=== PATIENT | male | born 1980 ===

== ENCOUNTER 2016-11-19 16:55 | Inpatient (IN) | payer MEDICAID, OTHER ==
[2016-11-19 16:55] VITALS: BMI 21.5
[2016-11-19 17:56] LABS: BASO % 0.9 % (0.0-2.0); EOS % 1.3 % (0.0-4.0); HEMATOCRIT 36.6 % (35.0-51.0); LYMPH # 1.5 K/uL (1.0-4.3); LYMPH % 39.4 % (20.0-40.0); MEAN CELL VOLUME 96.1 fL (80.0-94.0); MEAN CORPUSCULAR HEMOGLOBIN 32.3 pg (27.0-31.0); MEAN CORPUSCULAR HGB CONC 33.7 g/dL (33.0-37.0); MEAN PLATELET VOLUME 8.4 fL (7.2-11.7); MONO # 0.5 K/uL (0.0-0.8); MONO % 12.8 % (0.0-10.0); RED CELL DISTRIBUTION WIDTH 13.4 % (11.5-14.5); WHITE BLOOD COUNT 3.8 K/uL (4.8-10.8)
[2016-11-19 18:00] LABS: CHLORIDE 97 mmol/L (98-107); POTASSIUM 4.4 mmol/L (3.6-5.2); SODIUM 138 mmol/L (132-148)
[2016-11-19 18:01] LABS: RBC URINE 1 /hpf (0-3); URINE BILIRUBIN NEGATIVE (NEGATIVE); URINE BLOOD NEGATIVE (NEGATIVE); URINE COLOR Yellow (YELLOW); URINE GLUCOSE (UA) NORMAL (Normal); URINE KETONE NEGATIVE (NEGATIVE); URINE LEUKOCYTE ESTERASE NEG Leu/uL (Negative); URINE PROTEIN NEGATIVE (NEGATIVE); URINE UROBILINOGEN NORMAL mg/dL (0.2-1.0); WBC URINE < 1 /hpf (0-5)
[2016-11-19 18:02] LABS: BILIRUBIN,TOTAL 0.5 mg/dL (0.2-1.3); GFR AFRICAN-AMERICAN > 60
[2016-11-19 18:03] LABS: ALB/GLOB RATIO 1.2 (1.0-2.1); ALKALINE PHOSPHATASE 41 U/L (38-126); ALT/SGPT 59 U/L (21-72); AST/SGOT 58 U/L (17-59); BLOOD UREA NITROGEN 9 mg/dL (9-20); CALCIUM 8.4 mg/dl (8.6-10.4); CARBON DIOXIDE 31 mmol/L (22-30); GLUCOSE,RANDOM 113 mg/dL (75-110); TOTAL PROTEIN 7.6 g/dL (6.3-8.3)
[2016-11-19 18:04] LABS: ALCOHOL SERUM < 10 mg/dl (0-10)
--- NOTE | 2016-11-19 18:34 | C.PDOC ---
History Of Present Illness <MaryaRupal - Last Filed: 11/19/16 18:47> <Cruz Olmstead - Last Filed: 11/19/16 19:43> The patient, a 36 y/o male, presents to the emergency department for psychiatric evaluation. Patient states he has been feeling depressed after his father around 3 weeks ago. Patient admits to IV Heroin use. He denies recent seizure activity, stating he has been compliant with his medication. Patient denies suicidal/homicidal ideation and has no physical complaints at this time. (MaryaRupal) History Per: Patient History/Exam Limitations: no limitations Onset/Duration Of Symptoms: Other (around 3 weeks ) Current Symptoms Are (Timing): Still Present Suicide/Self Injury Attempted (Context): None Modifying Factor(s): Other (+heroin) Associated Symptoms: Depression. denies: Suicidal Thoughts, Suicidal Plan Involuntary Hold By: None Recent travel outside of the [place]: No Additional History Per: Patient <MaryaRupal - Last Filed: 11/19/16 18:47> <Cruz Olmstead - Last Filed: 11/19/16 19:43> Time Seen by Provider: 11/19/16 17:14 Chief Complaint (Nursing): Psychiatric Evaluation Past Medical History Reviewed: Historical Data, Nursing Documentation, Vital Signs - Medical History PMH: Anxiety, Depression, Pancreatitis, Seizures, Chronic Pain Denies: Diabetes, Hepatitis, HIV, HTN, Chronic Kidney Disease, Sexually Transmitted Disease Surgical History: No Surg Hx Family History: States: Unknown Family Hx - Social History Hx Tobacco Use: Yes Hx Alcohol Use: Yes Hx Substance Use: Yes - Immunization History Hx Tetanus Toxoid Vaccination: No Hx Influenza Vaccination: Yes Hx Pneumococcal Vaccination: Yes <MikeRupal kaplan - Last Filed: 11/19/16 18:47> Review Of Systems Except As Marked, All Systems Reviewed And Found Negative. Psych: Positive for: Depression, Other (+IV heroin use ). Negative for: Suicidal ideation <MikeRupal kaplan - Last Filed: 11/19/16 18:47> Physical Exam - Physical Exam Appears: Non-toxic, No Acute Distress Skin: Normal Color, Warm, Dry, Other (+track chaudhry to left upper extremity ) Head: Atraumatic, Normacephalic Eye(s): bilateral: Normal Inspection Oral Mucosa: Moist Neck: Supple Chest: Symmetrical, No Deformity, No Tenderness Cardiovascular: Rhythm Regular, No Murmur Respiratory: Normal Breath Sounds, No Rales, No Rhonchi, No Wheezing Back: Normal Inspection, No Vertebral Tenderness, No Paraspinal Tenderness Extremity: Normal ROM, Capillary Refill (less than 2 seconds ) Neurological/Psych: Oriented x3, Normal Speech, Normal Cognition Gait: Steady <Rupal Malhotra - Last Filed: 11/19/16 18:47> ED Course And Treatment - Laboratory Results Result Diagrams: 11/19/16 17:45 11/19/16 17:45 O2 Sat by Pulse Oximetry: 98 (on RA) Pulse Ox Interpretation: Normal Progress Note: labs ordered and reviewed. <Rupal Malhotra - Last Filed: 11/19/16 18:47> - Laboratory Results Result Diagrams: 11/19/16 17:45 11/19/16 17:45 <Cruz Olmstead - Last Filed: 11/19/16 19:43> Disposition - Disposition Disposition Time: 18:47 <Rupal Malhotra - Last Filed: 11/19/16 18:47> Discussed With : Caterina Neumann Doctor Will See Patient In The: Hospital Counseled Patient/Family Regarding: Diagnosis - Disposition Disposition Time: 19:43 <Cruz Olmstead - Last Filed: 11/19/16 19:43> - Disposition Disposition: HOSPITALIZED Condition: STABLE - Clinical Impression Clinical Impression: Depression, Opioid abuse - PA / [employer] MANAGER / Resident Statement MD/DO has reviewed & agrees with the documentation as recorded. - Scribe Statement The provider has reviewed the documentation as recorded by the Scribe (Kavya Fay) <Rupal Malhotra - Last Filed: 11/19/16 18:47> <Cruz Olmstead - Last Filed: 11/19/16 19:43> - Scribe Statement All medical record entries made by the Scribe were at my direction and personally dictated by me. I have reviewed the chart and agree that the record accurately reflects my personal performance of the history, physical exam, medical decision making, and the department course for this patient. I have also personally directed, reviewed, and agree with the discharge instructions and disposition. (Rupal Malhotra) Physician Patient Turnover Patient Signed Over To: Cruz Olmstead Handoff Comments: pending psych evaluation <Rupal Malhotra - Last Filed: 11/19/16 18:47>
[2016-11-19] MEDS ORDERED: Aluminum Hydroxide/Magnesium Hydroxide Susp (30 mL) PO PRN (21:47)
[2016-11-20] MEDS ORDERED: Patient's Own Medication - Tablet/Capusle PO SCH (10:00)
[2016-11-20] MEDS: Divalproex 500 mg ER Tab PO SCH ×2 (11:23→17:06)
[2016-11-20] MEDS ORDERED: Buprenorphine Hydrochloride 2 mg SL ONE ×2 (13:45→14:00)
--- NOTE | 2016-11-20 14:31 | PCM.PSYCH ---
Initial Psychiatric Evaluation - Initial Psychiatric Evaluation Type of Admission: Voluntary Legal Status: Capacity Chief Complaint (in patient's own words): "I needed help" History of Present Illness and Precipitating Events: The pt is seen, chart reviewed, case discussed. He is known to the insurance underwriter from previous admission. This is a 36 yo LM, , has an 8 yo son. On disability due to epilepsy and lives alone. He uses "10-11" bags IV x1 month and started when he was 15 yo. Denies all other drugs and alcohol but cigarette 10/d and MJ is positive in UDS but again he denies using it. He has been to 5 detoxes and as many rehabs in the past. Used methadone in [place] and his dose was 180 mg, 4 years ago. He feels depressed and has had vague SI even recently. However, he denies it now and contracts for safety. No other psych sxs. Past psych hx: four admissions and two germania attempts. Last time for both was in 2012. Method was OD by pills Not on meds now. Family psych hx: Mo had depression and father and uncles had heroin use. Medical hx: Epilepsy. Current Medications: Active Medications Generic Name Dose Route Start Last Admin Trade Name Freq PRN Reason Stop Dose Admin Al Hydrox/Mg Hydrox/Simethicone 30 ml 11/19/16 21:47 Maalox 30 Ml PO TID PRN Indigestion / Heartburn Clonidine HCl 0.1 mg 11/19/16 21:47 Catapres PO Q8 PRN COWS Score More or Equal to 5 Divalproex Sodium 500 mg 11/20/16 10:00 11/20/16 11:23 Depakote Er PO 500 mg BID ROXANNE Administration Escitalopram Oxalate 5 mg 11/20/16 11:00 11/20/16 12:16 Lexapro PO 5 mg DAILY ROXANNE Administration Home Med 1 tab 11/20/16 10:00 11/20/16 11:23 Patient's Own Medication PO 1 tab DAILY ROXANNE Administration Hydroxyzine HCl 50 mg 11/19/16 21:48 Atarax PO Q6H PRN Anxiety Ibuprofen 600 mg 11/19/16 21:50 Motrin Tab PO Q6H PRN Pain, moderate (4-7) Loperamide HCl 2 mg 11/19/16 21:47 Imodium PO Q8 PRN Diarrhea Ondansetron HCl 4 mg 11/19/16 21:47 Zofran Tab PO Q8 PRN Nausea/Vomiting Trazodone HCl 100 mg 11/19/16 21:48 Desyrel PO HS PRN Insomnia Past Psychiatric History - Past Psychiatric History Previous Treatment History: Inpatient Pertinent Medical Hx (Current Medical&Sleep Prob, Allergies): Allergies Allergy/AdvReac Type Severity Reaction Status Date / Time No Known Allergies Allergy Verified 11/19/16 17:35 Divalproex [Depakote ER] 500 mg PO BID 02/11/15 Eslicarbazepine Acetate [Aptiom] 1 tab PO DAILY 11/19/16 Zolpidem [Ambien] 1 tab PO HS 11/19/16 hydrALAZINE [Apresoline] 1 tab PO DAILY 11/19/16 Review of Systems - Neurological Neurological: UNREMARKABLE - Psychiatric Psychiatric: Abnormal Sleep Pattern, Anhedonia, Anxiety, Depression, Difficulty Concentrating. absent: Hallucinations, Homicidal Ideation, Hopelessness, Paranoia, Suicidal Ideation Mental Status Examination - Personal Presentation Personal Presentation: Looks older than stated age - Affect Affect: Blunted - Motor Activity Motor Activity: Calm - Reliability in Providing Information Reliability in Providing Information: Fair - Speech Speech: Organized - Mood Mood: Depressed, Anxious - Formal Thought Process Formal Thought Process: No Impairment - Cognitive Functions Orientation: Person, Place, Situation, Time Sensorium: Alert Attention/Concentration: Attentive Abstract Thinking: [place] Estimate of Intelligence: Average Judgement: Intact, as evidence by: Insight regarding need for hospitalization Memory: Recent intact, as evidence by: Ability to recall events of the day, Remote intact, as evidenced by: Abilit to recall sig. life events - Risk Risk: Withdrawal, Diminished functioning - Strength & Assets Inventory Strength & Assets Inventory: Cooperative - Limitations Limitations: Living alone DSM 5 DX - DSM 5 DSM 5 Diagnosis: Opioid withdrawal Opioid use d/o - severe Tobacco use d/o - severe Major depressive d/o - recurrent, severe, without psychosis - Recommended/Plan of Treatment Treatment Recommendations and Plan of Treatment: Opioids: Subutex detox As needed meds Support and psychoed Attend groups and activities NH and CBT Depression: Lexapro CBT and support Epilepsy: Continue meds 34 min Projected ELOS: 4-5 days Prognosis: good w treatment - Smoking Cessation Smoking Cessation Initiated: Yes
--- NOTE | 2016-11-20 20:47 | PCM.RRTMUL ---
MANAGER NIGHT Nurses Assessment - Situation MANAGER NIGHT Responder Arrival Time:: 20:25 MANAGER NIGHT Reason for Call: Change in Mental Status (epileptic seizure) MANAGER NIGHT Called By: RN - IV IV Inserted during MANAGER NIGHT?: No IV Fluids Initiated During MANAGER NIGHT?: no - Respiratory Oxygen Delivery Method:: Nasal Cannula (2L) Received Nebulizer Treatments:: No Was the Patient Ventilated with Bag/Mask 100% O2?: No Secretions Suctioned?: No Was the Patient Intubated?: No Was the Patient Placed on a Ventilator?: No - Diagnostic Test Ordered EKG:: Yes CT Scan:: Yes (Head CT w/o contrast) CPR started during MANAGER NIGHT?: No - Vital Signs Blood Pressure:: 108/66 (lying down left lateral decubitus) Pulse Rate:: 106 Respiratory Rate:: 18 Temperature:: 97.9 F - Time MANAGER NIGHT Ended Time MANAGER NIGHT Ended:: 08:38 - Recommendations 5) MANAGER NIGHT Level of Care Recommendations: Transfer to Telemetry 6) Notifications: Attending Physician (Dr. Neumann), Consultations (Dr. Pelaez neurology) I.Reason for MANAGER NIGHT - A) Acute Change in Patient: (Select all that apply): Acute change in mental status (witnessed seizure) - A) Initial Vital Signs: Blood Pressure: 123/64 Pulse Rate: 85 Respiratory Rate: 18 Temperature: 97.9 F O2 Sat by Pulse Oximetry: 99 - B) Neurological Status (Select all that apply): Alert, Responsive, Disoriented. absent: Oriented (x 2 to self and year - not place), Confused, Lethargic, Aggressive, Weakness - C) Respiratory Oxygen Delivery Method: Nasal Cannula @L/min (2L/min) - Constitutional Appears: In Acute Distress (seizing) - Head Head Exam: ATRAUMATIC, NORMAL INSPECTION, NORMOCEPHALIC - Eyes Eye Exam: Normal appearance. absent: Conjunctival injection, Scleral icterus - Respiratory Exam Respiratory Exam: Clear to Ausculation Bilateral, NORMAL BREATHING PATTERN. absent: Accessory Muscle Use, Rales, Rhonchi, Wheezes, Respiratory Distress - Cardiovascular Exam Cardiovascular Exam: REGULAR RHYTHM, RRR, +S1, +S2 - GI/Abdominal Exam GI & Abdominal Exam: Soft, Normal Bowel Sounds. absent: Tenderness - Neurological Exam Neurological Exam: Alert, Awake. absent: Oriented x3 Additional exam: post ictal - Extremities Exam Extremities Exam: Normal Capillary Refill, Normal Inspection. absent: Pedal Edema, Tenderness Plan - A. End of MANAGER NIGHT Vital Signs: Blood Pressure: 108/66 Pulse Rate: 106 Respiratory Rate: 18 Temperature: 97.9 F O2 Sat by Pulse Oximetry: 99 - B. Assessment of Findings&Treatment Plan Epileptic Seizure Patient was given 1mg ativan IVP STAT Patient ordered 1mg q4 IVP prn seizure activity CT head w/o contrast was ordered to rule out any bleed Patient had stat EKG ordered Transfer to [facility] for monitoring Dr. Pelaez Neurology consulted Dr. Neumann primary physician aware
--- NOTE | 2016-11-20 21:14 | CP.PCM.HP ---
<Radha Vidal - Last Filed: 11/20/16 21:52> History of Present Illness - History of Present Illness History of Present Illness: CC: seizure HPI: 36 year old male with PMHx of Epilepsy, depression with h/o of SI and attempt, IVDA was transferred to [facility] after a [employer] was called on detox unit for seizure activity. Patient was admitted to detox on 11/20/16 because he wanted to detox from heroin and was depressed. Patient's last heroin use was on Saturday when he injected 7-8 bags and usually injects in his left arm. Patient reported he usually uses 10 to 11 bags of heroin. He gets money from disability. Patient was also depressed but denied any suicidal or homicidal ideations on this visit and denied any auditory or visual hallucinations. Patient has a history of congenital epilepsy for which he takes Depakote 500mg po bid and Optium 600mg daily. He reports he had his last seizure the week before admission when he was home alone and had an unwitnessed seizure. Patient reports no predromal symptoms before his seizure. He states he is complaint with his medications. On ROS patient admitted to headaches, dizziness, lightheadedness and denied all other acute symptoms. Patient denied any recent travel, sickness, sick contacts. PMD: Dr. Nieves PMHx: Epilepsy, depression with h/o of SI and attempt, IVDA. ALL: NKDA Social Hx: Smoking Status: Light Smoker < 10 Cigarettes Daily, Alcohol: None, Drugs: Opiates (IVDA of Heroin). SurgHx: none Family Hx: mother ad breast ca and DM; father from overdose Present on Admission - Present on Admission Any Indicators Present on Admission: No Review of Systems - Constitutional Constitutional: As Per HPI, Headache. absent: Chills, Weight Gain, Weight Loss - EENT Eyes: As Per HPI Ears: As Per HPI, Dizziness Nose/Mouth/Throat: As Per HPI. absent: Dysphagia, Sore Throat - Cardiovascular Cardiovascular: As Per HPI. absent: Chest Pain, Dyspnea, Dyspnea on Exertion, Edema, Leg Edema, Palpitations - Respiratory Respiratory: As Per HPI. absent: Cough, Dyspnea, Wheezing, Chest Congestion - Gastrointestinal Gastrointestinal: As Per HPI. absent: Abdominal Pain, Constipation, Diarrhea, Dysphagia, Nausea, Vomiting - Genitourinary Genitourinary: As Per HPI. absent: Dysuria, Hematuria, Pyuria, Nocturia - Musculoskeletal Musculoskeletal: As Per HPI. absent: Back Pain, Numbness, Tingling - Integumentary Integumentary: As Per HPI. absent: Rash - Neurological Neurological: As Per HPI, Dizziness, Headaches. absent: Numbness, Tingling, Weakness - Psychiatric Psychiatric: As Per HPI, Depression. absent: Anxiety, Auditory Hallucinations, Hallucinations, Homicidal Ideation, Suicidal Ideation, Visual Hallucinations, Tactile Hallucinations - Endocrine Endocrine: As Per HPI. absent: Palpitations, Polydipsia, Polyphagia, Polyuria - Hematologic/Lymphatic Hematologic: absent: Easy Bleeding, Easy Bruising, Lymphadenopathy Past Patient History - Infectious Disease Hx of Infectious Diseases: None - Tetanus Immunizations Tetanus Immunization: Unknown - Past Medical History & Family History Past Medical History?: Yes - Past Social History Smoking Status: Heavy Smoker > 10 Cigarettes Daily - CARDIAC Hx Hypertension: No - PULMONARY Hx Tuberculosis: No - NEUROLOGICAL Hx Seizures: Yes - HEENT Hx HEENT Problems: No - RENAL Hx Chronic Kidney Disease: No - ENDOCRINE/METABOLIC Hx Endocrine Disorders: No - HEMATOLOGICAL/ONCOLOGICAL Hx Human Immunodeficiency Virus (HIV): No - INTEGUMENTARY Hx Dermatological Problems: No - MUSCULOSKELETAL/RHEUMATOLOGICAL Hx Musculoskeletal Disorders: No Hx Falls: Yes - GASTROINTESTINAL Hx Pancreatitis: Yes - GENITOURINARY/GYNECOLOGICAL Hx Sexually Transmitted Disorders: No - PSYCHIATRIC Hx Anxiety: Yes Hx Depression: Yes Hx Substance Use: Yes - SURGICAL HISTORY Hx Surgeries: Yes - ANESTHESIA Hx Anesthesia: Yes Hx Anesthesia Reactions: No Meds Allergies/Adverse Reactions: Allergies Allergy/AdvReac Type Severity Reaction Status Date / Time No Known Allergies Allergy Verified 11/19/16 17:35 Physical Exam - Constitutional Appears: Non-toxic, No Acute Distress - Head Exam Head Exam: ATRAUMATIC, NORMAL INSPECTION, NORMOCEPHALIC - Eye Exam Eye Exam: EOMI, Normal appearance, PERRL. absent: Conjunctival injection, Scleral icterus Pupil Exam: NORMAL ACCOMODATION, PERRL - ENT Exam ENT Exam: Mucous Membranes Moist - Neck Exam Neck exam: Positive for: Full Rom, Normal Inspection. Negative for: Lymphadenopathy, Tenderness - Respiratory Exam Respiratory Exam: Clear to Auscultation Bilateral, NORMAL BREATHING PATTERN. absent: Accessory Muscle Use, Rales, Rhonchi, Wheezes, Respiratory Distress - Cardiovascular Exam Cardiovascular Exam: REGULAR RHYTHM, RRR, +S1, +S2 - GI/Abdominal Exam GI & Abdominal Exam: Normal Bowel Sounds, Soft. absent: Firm, Guarding, Rigid, Tenderness - Extremities Exam Extremities exam: Positive for: normal capillary refill, pedal pulses present. Negative for: pedal edema, tenderness Additional comments: track chaudhry noted on LUE - Back Exam Back exam: NORMAL INSPECTION. absent: rash noted, tenderness - Neurological Exam Neurological exam: Alert, CN II-XII Intact, Oriented x3 - Psychiatric Exam Psychiatric exam: Depressed, Normal Affect - Skin Skin Exam: Dry, Intact, Normal Color, Warm Additional comments: tattoos and track chaudhry noted Results - Vital Signs Recent Vital Signs: Last Vital Signs Temp 97.9 F 11/20/16 20:58 Pulse 106 H 11/20/16 20:58 Resp 18 11/20/16 20:58 BP 108/66 11/20/16 20:58 Pulse Ox 99 11/20/16 20:11 - Labs Result Diagrams: 11/19/16 17:45 11/19/16 17:45 Assessment & Plan - Assessment and Plan (Free Text) Assessment: 36 year old male with PMHx of Epilepsy, depression with h/o of SI and attempt, IVDA was transferred to TELE after a [employer]ERSON was called on detox unit for seizure activity. Plan: Epileptic Seizure -Patient has known history of epileptic seizures -Patient transferred to TELE floor from detox for monitoring -Patient was given 1mg ativan IVP during [employer] on detox floor -Ativan 1mg IVP Q4 prn seizure activity -Head CT: no intracranial hemorrhage; nonspecific white matter changes; incidental/non acute findings -f/u labs -f/u Depakote level -Depakote 500mg po bid -Neurology Dr. Pelaez consulted Opioid withdrawal/abuse -Managed as per psych -Dr. Neumann on board Major Depressive Disorder -Managed as per psych -Dr. Neumann on board PPX -Heparin 5000U SC Q12 -Pepcid 20mg po bid -Zofran 4mg po q8 nausea/vomiting -SCDs -Regular diet Plan discussed with Dr. Dara Vidal PGY1 <Flaco Diamond - Last Filed: 11/21/16 06:20> Results - Vital Signs Recent Vital Signs: Last Vital Signs Temp 99.5 F 11/21/16 04:00 Pulse 72 11/21/16 04:00 Resp 20 11/21/16 04:00 BP 118/64 11/21/16 00:10 Pulse Ox 97 11/21/16 04:00 - Labs Result Diagrams: 11/20/16 22:02 11/20/16 22:02 Labs: Laboratory Results - last 24 hr 11/20/16 11/20/16 11/20/16 22:02 22:02 22:02 WBC 5.9 D RBC 4.01 L Hgb 12.8 Hct 38.0 MCV 94.7 H MCH 32.0 H MCHC 33.8 RDW 13.8 Plt Count 156 MPV 9.3 Neut % (Auto) 84.6 H Lymph % (Auto) 8.9 L [place] % (Auto) 6.0 Eos % (Auto) 0.0 Baso % (Auto) 0.5 Neut # 5.0 Lymph # 0.5 L [place] # 0.4 Eos # 0.0 Baso # 0.0 Neutrophils % (Manual) 90 H Lymphocytes % (Manual) 6 L Monocytes % (Manual) 4 Platelet Estimate Normal RBC Morphology Normal Sodium 134 Potassium 4.2 Chloride 98 Carbon Dioxide 28 Anion Gap 13 BUN 17 Creatinine 0.8 Est GFR ( Amer) > 60 Est GFR (Non-Af Amer) > 60 Random Glucose 117 H Calcium 8.8 Phosphorus 2.0 L Magnesium 2.1 Total Bilirubin 0.6 AST 52 ALT 52 Alkaline Phosphatase 42 Total Protein 7.8 Albumin 4.2 Globulin 3.6 Albumin/Globulin Ratio 1.2 Valproic Acid 22.9 L Assessment & Plan - Date & Time Date: 11/21/16 (I have seen and examined the patient. I agree with the findings and plan of care as documented by Dr. Vidal. Patient with epileptic seizure. Rapid response called while in detox. Transfer to medical service. Ativan given during rapid. CT head. Consult to neuro. Depakote. For opioid abuse and history of depression, consult psych. Monitor for acute changes. Seizure precautions.) Time: 06:18 Attending/Attestation - Attestation I have personally seen and examined this patient.: Yes I have fully participated in the care of the patient.: Yes I have reviewed all pertinent clinical information: Yes
--- NOTE | 2016-11-20 21:16 | CT ---
EXAM: CT Head Without Intravenous Contrast CLINICAL HISTORY: 36 years old, male; Injury or trauma; Fall; Initial encounter; Concussion / head injury; Additional info: Fall - rapid response TECHNIQUE: Axial computed tomography images of the head/brain without intravenous contrast. This CT exam was performed using one or more of the following dose reduction techniques: automated exposure control, adjustment of the mA and/or kV according to patient size, and/or use of iterative reconstruction technique. COMPARISON: No relevant prior studies available. FINDINGS: Brain: Mild atrophy. No intracranial hemorrhage. No mass. Minimal decreased attenuation within periventricular white matter. No edema. Ventricles: No hydrocephalus. Bones/joints: No acute fracture. Sinuses: No acute sinusitis. Mastoid air cells: No mastoid effusion. Orbits: Unremarkable as visualized. IMPRESSION: 1. No intracranial hemorrhage. 2. Nonspecific white matter changes. 3. Incidental/non-acute findings are described above.
[2016-11-20 22:06] VITALS: RESP 20
[2016-11-20 22:12] LABS: BASO % 0.5 % (0.0-2.0); LYMPH # 0.5 K/uL (1.0-4.3); LYMPH % 8.9 % (20.0-40.0); MEAN CELL VOLUME 94.7 fL (80.0-94.0); MEAN CORPUSCULAR HGB CONC 33.8 g/dL (33.0-37.0); MEAN PLATELET VOLUME 9.3 fL (7.2-11.7); MONO # 0.4 K/uL (0.0-0.8); PLATELET COUNT 156 K/uL (130-400); RED CELL DISTRIBUTION WIDTH 13.8 % (11.5-14.5); WHITE BLOOD COUNT 5.9 K/uL (4.8-10.8)
[2016-11-20 22:20] LABS: CHLORIDE 98 mmol/L (98-107)
[2016-11-20 22:21] LABS: POTASSIUM 4.2 mmol/L (3.6-5.2); SODIUM 134 mmol/L (132-148)
[2016-11-20 22:23] LABS: ALB/GLOB RATIO 1.2 (1.0-2.1); ALKALINE PHOSPHATASE 42 U/L (38-126); ALT/SGPT 52 U/L (21-72); AST/SGOT 52 U/L (17-59); BILIRUBIN,TOTAL 0.6 mg/dL (0.2-1.3); BLOOD UREA NITROGEN 17 mg/dL (9-20); CARBON DIOXIDE 28 mmol/L (22-30); GFR AFRICAN-AMERICAN > 60; GLUCOSE,RANDOM 117 mg/dL (75-110); TOTAL PROTEIN 7.8 g/dL (6.3-8.3)
[2016-11-20 22:24] LABS: CALCIUM 8.8 mg/dl (8.6-10.4); MAGNESIUM 2.1 mg/dL (1.6-2.3)
[2016-11-20 22:51] LABS: NEUTROPHIL 90 % (50-75); TOTAL CELLS COUNTED 100
[2016-11-21 00:49] VITALS: BP 118/64
[2016-11-21 04:46] VITALS: PULSE 72; TEMP 99.5; O2SAT 97
--- NOTE | 2016-11-21 06:12 | CP.PCM.DIS ---
<Radha Vidal - Last Filed: 11/21/16 06:12> Provider - Provider Date of Admission: 11/19/16 19:43 Attending physician: Flaco Diamond MD Primary care physician: Dr. Nieves Consults: Dr. Pelaez neurology Time Spent in preparation of Discharge (in minutes): 45 Hospital Course - Lab Results Lab Results: Most Recent Lab Values WBC 5.9 K/uL (4.8-10.8) D 11/20/16 22:02 RBC 4.01 Mil/uL (4.40-5.90) L 11/20/16 22:02 Hgb 12.8 g/dL (12.0-18.0) 11/20/16 22:02 Hct 38.0 % (35.0-51.0) 11/20/16 22:02 MCV 94.7 fL (80.0-94.0) H 11/20/16 22:02 MCH 32.0 pg (27.0-31.0) H 11/20/16 22:02 MCHC 33.8 g/dL (33.0-37.0) 11/20/16 22:02 RDW 13.8 % (11.5-14.5) 11/20/16 22:02 Plt Count 156 K/uL (130-400) 11/20/16 22:02 MPV 9.3 fL (7.2-11.7) 11/20/16 22:02 Neut % (Auto) 84.6 % (50.0-75.0) H 11/20/16 22:02 Lymph % (Auto) 8.9 % (20.0-40.0) L 11/20/16 22:02 Carlisle % (Auto) 6.0 % (0.0-10.0) 11/20/16 22:02 Eos % (Auto) 0.0 % (0.0-4.0) 11/20/16 22:02 Baso % (Auto) 0.5 % (0.0-2.0) 11/20/16 22:02 Neut # 5.0 K/uL (1.8-7.0) 11/20/16 22:02 Lymph # 0.5 K/uL (1.0-4.3) L 11/20/16 22:02 Carlisle # 0.4 K/uL (0.0-0.8) 11/20/16 22:02 Eos # 0.0 K/uL (0.0-0.7) 11/20/16 22:02 Baso # 0.0 K/uL (0.0-0.2) 11/20/16 22:02 Neutrophils % (Manual) 90 % (50-75) H 11/20/16 22:02 Lymphocytes % (Manual) 6 % (20-40) L 11/20/16 22:02 Monocytes % (Manual) 4 % (0-10) 11/20/16 22:02 Platelet Estimate Normal (NORMAL) 11/20/16 22:02 RBC Morphology Normal 11/20/16 22:02 Sodium 134 mmol/L (132-148) 11/20/16 22:02 Potassium 4.2 mmol/L (3.6-5.2) 11/20/16 22:02 Chloride 98 mmol/L (98-107) 11/20/16 22:02 Carbon Dioxide 28 mmol/L (22-30) 11/20/16 22:02 Anion Gap 13 (10-20) 11/20/16 22:02 BUN 17 mg/dL (9-20) 11/20/16 22:02 Creatinine 0.8 MG/DL (0.8-1.5) 11/20/16 22:02 Est GFR ( Amer) > 60 11/20/16 22:02 Est GFR (Non-Af Amer) > 60 11/20/16 22:02 Random Glucose 117 mg/dL (75-110) H 11/20/16 22:02 Calcium 8.8 mg/dl (8.6-10.4) 11/20/16 22:02 Phosphorus 2.0 mg/dL (2.5-4.5) L 11/20/16 22:02 Magnesium 2.1 mg/dL (1.6-2.3) 11/20/16 22:02 Total Bilirubin 0.6 mg/dL (0.2-1.3) 11/20/16 22:02 AST 52 U/L (17-59) 11/20/16 22:02 ALT 52 U/L (21-72) 11/20/16 22:02 Alkaline Phosphatase 42 U/L (38-126) 11/20/16 22:02 Total Protein 7.8 g/dL (6.3-8.3) 11/20/16 22:02 Albumin 4.2 g/dL (3.5-5.0) 11/20/16 22:02 Globulin 3.6 gm/dL (2.2-3.9) 11/20/16 22:02 Albumin/Globulin Ratio 1.2 (1.0-2.1) 11/20/16 22:02 Urine Color Yellow (YELLOW) 11/19/16 17:45 Urine Clarity Clear (Clear) 11/19/16 17:45 Urine pH 7.0 (5.0-8.0) 11/19/16 17:45 Ur Specific Nerinx 1.017 (1.003-1.030) 11/19/16 17:45 Urine Protein Negative mg/dL (NEGATIVE) 11/19/16 17:45 Urine Glucose (UA) Normal mg/dL (Normal) 11/19/16 17:45 Urine Ketones Negative mg/dL (NEGATIVE) 11/19/16 17:45 Urine Blood Negative (NEGATIVE) 11/19/16 17:45 Urine Nitrate Negative (NEGATIVE) 11/19/16 17:45 Urine Bilirubin Negative (NEGATIVE) 11/19/16 17:45 Urine Urobilinogen Normal mg/dL (0.2-1.0) 11/19/16 17:45 Ur Leukocyte Esterase Neg Rachel/uL (Negative) 11/19/16 17:45 Urine WBC (Auto) < 1 /hpf (0-5) 11/19/16 17:45 Urine RBC (Auto) 1 /hpf (0-3) 11/19/16 17:45 Urine Opiates Screen Positive (NEGATIVE) 11/19/16 17:45 Urine Methadone Screen Negative (NEGATIVE) 11/19/16 17:45 Ur Barbiturates Screen Negative (NEGATIVE) 11/19/16 17:45 Valproic Acid 22.9 ug/mL (50.0-100.0) L 11/20/16 22:02 Ur Phencyclidine Scrn Negative (NEGATIVE) 11/19/16 17:45 Ur Amphetamines Screen Negative (NEGATIVE) 11/19/16 17:45 U Benzodiazepines Scrn Negative (NEGATIVE) 11/19/16 17:45 U Oth Cocaine Metabols Negative (NEGATIVE) 11/19/16 17:45 U Cannabinoids Screen Positive (NEGATIVE) 11/19/16 17:45 Alcohol, Quantitative < 10 mg/dl (0-10) 11/19/16 17:45 - Hospital Course Hospital Course: Upon Admission 36 year old male with PMHx of Epilepsy, depression with h/o of SI and attempt, IVDA was transferred to [facility] after a TILE SETTER APPRENTICE was called on detox unit for seizure activity. Patient was admitted to detox on 11/20/16 because he wanted to detox from heroin and was depressed. Patient's last heroin use was on Saturday when he injected 7-8 bags and usually injects in his left arm. Patient reported he usually uses 10 to 11 bags of heroin. He gets money from disability. Patient was also depressed but denied any suicidal or homicidal ideations on this visit and denied any auditory or visual hallucinations. Patient has a history of congenital epilepsy for which he takes Depakote 500mg po bid and Optium 600mg daily. He reports he had his last seizure the week before admission when he was home alone and had an unwitnessed seizure. Patient reports no predromal symptoms before his seizure. He states he is complaint with his medications. On ROS patient admitted to headaches, dizziness, lightheadedness and denied all other acute symptoms. Patient denied any recent travel, sickness, sick contacts. Patient signed out AMA on 11/21/16. Risks of leaving against medical advice were explained in great detail including recurrent seizures, falls, bleed, heroin overdose, , respiratory depression, MD. Patient was adamant on still leaving. Nurse witnessed. Please note this is a discharge summary. For hospital course please refer to medical records. Discharge Exam - Head Exam Head Exam: ATRAUMATIC, NORMAL INSPECTION, NORMOCEPHALIC - Eye Exam Eye Exam: Normal appearance. absent: Conjunctival injection, Scleral icterus Pupil Exam: NORMAL ACCOMODATION - ENT Exam ENT Exam: Mucous Membranes Moist - Neck Exam Neck exam: Normal Inspection - Respiratory Exam Respiratory Exam: Clear to PA & Lateral, NORMAL BREATHING PATTERN. absent: Rales, Rhonchi, Wheezes - Cardiovascular Exam Cardiovascular Exam: REGULAR RHYTHM, RRR, +S1, +S2 - GI/Abdominal Exam GI & Abdominal Exam: Normal Bowel Sounds, Soft. absent: Firm, Guarding, Rigid, Tenderness - Extremities Exam Extremities exam: normal capillary refill, pedal pulses present - Back Exam Back exam: NORMAL INSPECTION. absent: rash noted - Neurological Exam Neurological exam: Alert, Oriented x3 - Psychiatric Exam Psychiatric exam: Normal Affect, Normal Mood - Skin Skin Exam: Dry, Intact, Normal Color, Warm Discharge Plan - Follow Up Plan Condition: STABLE Disposition: AGAINST MEDICAL ADVICE Instructions: Depression (DC) Additional Instructions: Discharge Hotline Numbers: [place] [facility] 24 Hour Hotline: 5-092-837 HELP (1827) OR Addictions Services Hotline - AA- Alcoholics Anonymous 24 Hour Hotline: 2-604-689- 2963 NA- Narcotics Anonymous 24 Hour Hotline: OR Outline (cigarettes): If needed you can reach the detox unit at Avoid all mood and mind altering substances including alcohol. Make every effort to make 90 meetings in 90 days and obtain a sponsor and get involved in 12 step recovery. Follow up with you primary doctor for your medical needs Discharge Medications: Nutrition: Eat balanced meals incorporating fruits, vegetables and protein. Drink plenty of water throughout the day at least 8 to 10 cups. Sleep is extremely important in your recovery. Follow Up Appointments: 1. [facility] [address] [place] [address] Appointment November 28, 2016 Transportation: Bus/public transportation Patient warned leaving AMA may lead to complications of his medical issues and potentially . <Flaco Diamond - Last Filed: 11/21/16 06:29> Provider - Provider Date of Admission: 11/19/16 19:43 Attending physician: Flaco Diamond MD Hospital Course - Lab Results Lab Results: Most Recent Lab Values WBC 5.9 K/uL (4.8-10.8) D 11/20/16 22:02 RBC 4.01 Mil/uL (4.40-5.90) L 11/20/16 22:02 Hgb 12.8 g/dL (12.0-18.0) 11/20/16 22:02 Hct 38.0 % (35.0-51.0) 11/20/16 22:02 MCV 94.7 fL (80.0-94.0) H 11/20/16 22:02 MCH 32.0 pg (27.0-31.0) H 11/20/16 22:02 MCHC 33.8 g/dL (33.0-37.0) 11/20/16 22:02 RDW 13.8 % (11.5-14.5) 11/20/16 22:02 Plt Count 156 K/uL (130-400) 11/20/16 22:02 MPV 9.3 fL (7.2-11.7) 11/20/16 22:02 Neut % (Auto) 84.6 % (50.0-75.0) H 11/20/16 22:02 Lymph % (Auto) 8.9 % (20.0-40.0) L 11/20/16 22:02 Carlisle % (Auto) 6.0 % (0.0-10.0) 11/20/16 22:02 Eos % (Auto) 0.0 % (0.0-4.0) 11/20/16 22:02 Baso % (Auto) 0.5 % (0.0-2.0) 11/20/16 22:02 Neut # 5.0 K/uL (1.8-7.0) 11/20/16 22:02 Lymph # 0.5 K/uL (1.0-4.3) L 11/20/16 22:02 Carlisle # 0.4 K/uL (0.0-0.8) 11/20/16 22:02 Eos # 0.0 K/uL (0.0-0.7) 11/20/16 22:02 Baso # 0.0 K/uL (0.0-0.2) 11/20/16 22:02 Neutrophils % (Manual) 90 % (50-75) H 11/20/16 22:02 Lymphocytes % (Manual) 6 % (20-40) L 11/20/16 22:02 Monocytes % (Manual) 4 % (0-10) 11/20/16 22:02 Platelet Estimate Normal (NORMAL) 11/20/16 22:02 RBC Morphology Normal 11/20/16 22:02 Sodium 134 mmol/L (132-148) 11/20/16 22:02 Potassium 4.2 mmol/L (3.6-5.2) 11/20/16 22:02 Chloride 98 mmol/L (98-107) 11/20/16 22:02 Carbon Dioxide 28 mmol/L (22-30) 11/20/16 22:02 Anion Gap 13 (10-20) 11/20/16 22:02 BUN 17 mg/dL (9-20) 11/20/16 22:02 Creatinine 0.8 MG/DL (0.8-1.5) 11/20/16 22:02 Est GFR ( Amer) > 60 11/20/16 22:02 Est GFR (Non-Af Amer) > 60 11/20/16 22:02 Random Glucose 117 mg/dL (75-110) H 11/20/16 22:02 Calcium 8.8 mg/dl (8.6-10.4) 11/20/16 22:02 Phosphorus 2.0 mg/dL (2.5-4.5) L 11/20/16 22:02 Magnesium 2.1 mg/dL (1.6-2.3) 11/20/16 22:02 Total Bilirubin 0.6 mg/dL (0.2-1.3) 11/20/16 22:02 AST 52 U/L (17-59) 11/20/16 22:02 ALT 52 U/L (21-72) 11/20/16 22:02 Alkaline Phosphatase 42 U/L (38-126) 11/20/16 22:02 Total Protein 7.8 g/dL (6.3-8.3) 11/20/16 22:02 Albumin 4.2 g/dL (3.5-5.0) 11/20/16 22:02 Globulin 3.6 gm/dL (2.2-3.9) 11/20/16 22:02 Albumin/Globulin Ratio 1.2 (1.0-2.1) 11/20/16 22:02 Urine Color Yellow (YELLOW) 11/19/16 17:45 Urine Clarity Clear (Clear) 11/19/16 17:45 Urine pH 7.0 (5.0-8.0) 11/19/16 17:45 Ur Specific Nerinx 1.017 (1.003-1.030) 11/19/16 17:45 Urine Protein Negative mg/dL (NEGATIVE) 11/19/16 17:45 Urine Glucose (UA) Normal mg/dL (Normal) 11/19/16 17:45 Urine Ketones Negative mg/dL (NEGATIVE) 11/19/16 17:45 Urine Blood Negative (NEGATIVE) 11/19/16 17:45 Urine Nitrate Negative (NEGATIVE) 11/19/16 17:45 Urine Bilirubin Negative (NEGATIVE) 11/19/16 17:45 Urine Urobilinogen Normal mg/dL (0.2-1.0) 11/19/16 17:45 Ur Leukocyte Esterase Neg Rachel/uL (Negative) 11/19/16 17:45 Urine WBC (Auto) < 1 /hpf (0-5) 11/19/16 17:45 Urine RBC (Auto) 1 /hpf (0-3) 11/19/16 17:45 Urine Opiates Screen Positive (NEGATIVE) 11/19/16 17:45 Urine Methadone Screen Negative (NEGATIVE) 11/19/16 17:45 Ur Barbiturates Screen Negative (NEGATIVE) 11/19/16 17:45 Valproic Acid 22.9 ug/mL (50.0-100.0) L 11/20/16 22:02 Ur Phencyclidine Scrn Negative (NEGATIVE) 11/19/16 17:45 Ur Amphetamines Screen Negative (NEGATIVE) 11/19/16 17:45 U Benzodiazepines Scrn Negative (NEGATIVE) 11/19/16 17:45 U Oth Cocaine Metabols Negative (NEGATIVE) 11/19/16 17:45 U Cannabinoids Screen Positive (NEGATIVE) 11/19/16 17:45 Alcohol, Quantitative < 10 mg/dl (0-10) 11/19/16 17:45 - Date & Time of H&P Date of H&P: 11/21/16
[2016-11-21 06:29] LABS: BASO % 0.1 % (0.0-2.0); HEMATOCRIT 36.3 % (35.0-51.0); LYMPH # 1.2 K/uL (1.0-4.3); LYMPH % 15.9 % (20.0-40.0); MEAN CELL VOLUME 94.3 fL (80.0-94.0); MEAN CORPUSCULAR HEMOGLOBIN 32.2 pg (27.0-31.0); MEAN CORPUSCULAR HGB CONC 34.2 g/dL (33.0-37.0); MONO # 0.5 K/uL (0.0-0.8); MONO % 6.3 % (0.0-10.0); NRBC % 0.1 % (0.0-2.0); RED CELL DISTRIBUTION WIDTH 13.6 % (11.5-14.5); WHITE BLOOD COUNT 7.5 K/uL (4.8-10.8)
[2016-11-21 06:58] LABS: CHLORIDE 98 mmol/L (98-107)
[2016-11-21 06:59] LABS: SODIUM 134 mmol/L (132-148)
[2016-11-21 07:01] LABS: ALB/GLOB RATIO 1.3 (1.0-2.1); ALKALINE PHOSPHATASE 45 U/L (38-126); ALT/SGPT 50 U/L (21-72); AST/SGOT 48 U/L (17-59); BILIRUBIN,TOTAL 0.7 mg/dL (0.2-1.3); BLOOD UREA NITROGEN 15 mg/dL (9-20); CARBON DIOXIDE 25 mmol/L (22-30); GFR AFRICAN-AMERICAN > 60; TOTAL PROTEIN 7.3 g/dL (6.3-8.3)
[2016-11-21 07:02] LABS: CALCIUM 8.9 mg/dl (8.6-10.4); GLUCOSE,RANDOM 119 mg/dL (75-110); MAGNESIUM 1.9 mg/dL (1.6-2.3); PHOSPHOROUS 3.3 mg/dL (2.5-4.5)
[2016-11-21] MEDS ORDERED: Buprenorphine Hydrochloride 2 mg SL SCH (09:00)
--- NOTE | 2016-11-22 12:17 | CARD ---
APPROVED REPORT EKG Measurement Heart [id number] MI [id number] <Conclusion> Normal sinus rhythm Normal ECG
== END 2016-11-21 06:15 | disposition left against medical advice (07) | DRG 743 ==
LOC: C.ER 16:55 → C.7D 19:43 → C.6T 11-20 21:22
PROVIDERS: ADMIT Family Medicine; ATTEND Family Medicine
PROC: HZ2ZZZZ Detoxification Services for Substance Abuse Treatment (ICD-10-PCS; principal; 2016-11-19)
PROC: HZ59ZZZ Individual Psychotherapy for Substance Abuse Treatment, Supportive (ICD-10-PCS; 2016-11-19)
PROC: GZ3ZZZZ Medication Management (ICD-10-PCS; 2016-11-19)
PROC: HZ46ZZZ Group Counseling for Substance Abuse Treatment, Psychoeducation (ICD-10-PCS; 2016-11-19)
DX: F11.23 Opioid dependence with withdrawal (principal); F33.2 Major depressive disorder, recurrent severe without psychotic features; G40.909 Epilepsy, unspecified, not intractable, without status epilepticus; F17.210 Nicotine dependence, cigarettes, uncomplicated

== ENCOUNTER 2017-06-01 13:20 | Inpatient (IN) | payer MEDICAID, OTHER ==
[2017-06-01 13:21] VITALS: BMI 21.5
[2017-06-01] MEDS ORDERED: Lidocaine 2% w Epi 1:100,000 Inj IJ ONE (14:05)
[2017-06-01 14:14] LABS: EOS # 0.1 K/uL (0.0-0.7); EOS % 2.7 % (0.0-4.0); HEMATOCRIT 35.4 % (35.0-51.0); LYMPH # 1.3 K/uL (1.0-4.3); LYMPH % 40.4 % (20.0-40.0); MEAN CELL VOLUME 96.2 fL (80.0-94.0); MEAN CORPUSCULAR HEMOGLOBIN 33.3 pg (27.0-31.0); MEAN CORPUSCULAR HGB CONC 34.6 g/dL (33.0-37.0); MONO # 0.4 K/uL (0.0-0.8); MONO % 11.5 % (0.0-10.0); NRBC % 0.1 % (0.0-2.0); RED CELL DISTRIBUTION WIDTH 13.6 % (11.5-14.5)
[2017-06-01 14:16] LABS: WHITE BLOOD COUNT 3.2 K/uL (4.8-10.8)
[2017-06-01 14:21] LABS: URINE BILIRUBIN NEGATIVE (NEGATIVE); URINE BLOOD NEGATIVE (NEGATIVE); URINE COLOR Amber (YELLOW); URINE GLUCOSE (UA) NORMAL (Normal); URINE KETONE NEGATIVE (NEGATIVE); URINE LEUKOCYTE ESTERASE NEG Leu/uL (Negative); URINE PROTEIN NEGATIVE (NEGATIVE); URINE UROBILINOGEN NORMAL mg/dL (0.2-1.0); WBC URINE 2 /hpf (0-5)
[2017-06-01 14:27] LABS: ALCOHOL SERUM < 10 mg/dl (0-10); ALKALINE PHOSPHATASE 40 U/L (38-126); ALT/SGPT 72 U/L (21-72); AST/SGOT 45 U/L (17-59); BILIRUBIN,TOTAL 0.5 mg/dL (0.2-1.3); BLOOD UREA NITROGEN 9 mg/dL (9-20); CALCIUM 8.4 mg/dl (8.6-10.4); CARBON DIOXIDE 36 mmol/L (22-30); CHLORIDE 99 mmol/L (98-107); GFR AFRICAN-AMERICAN > 60; GLUCOSE,RANDOM 99 mg/dL (75-110); POTASSIUM 3.9 mmol/L (3.6-5.2); SODIUM 138 mmol/L (132-148); TOTAL PROTEIN 8.5 g/dL (6.3-8.3)
[2017-06-01 14:30] LABS: ALB/GLOB RATIO 0.9 (1.0-2.1)
--- NOTE | 2017-06-01 15:19 | CT ---
PROCEDURE: CT HEAD WITHOUT CONTRAST. HISTORY: Frontal laceration, possible seizure and fall to forehead. COMPARISON: 11/20/2016 TECHNIQUE: Axial computed tomography images were obtained through the head/brain without intravenous contrast. Radiation dose: Total exam DLP = 993 mGy-cm. This CT exam was performed using one or more of the following dose reduction techniques: Automated exposure control, adjustment of the mA and/or kV according to patient size, and/or use of iterative reconstruction technique. FINDINGS: HEMORRHAGE: No intracranial hemorrhage. BRAIN: No mass effect or edema. Again identified in the anterior left frontal lobe is a focal area of low attenuation best seen on series 2, image 20, not significantly changed since the prior study, possibly representing chronic ischemic change. Additional considerations may include encephalomalacia from posttraumatic contusion. Additional etiologies not excluded. Correlation MRI may be helpful if clinically indicated. VENTRICLES: Unremarkable. No hydrocephalus. CALVARIUM: Unremarkable. PARANASAL SINUSES: Unremarkable as visualized. No significant inflammatory changes. MASTOID AIR CELLS: Unremarkable as visualized. No inflammatory changes. OTHER FINDINGS: Probable chronic deformity of the left nasal bone. IMPRESSION: Again identified in the anterior left frontal lobe is a focal area of low the attenuation best seen on series 2, image 20, not significantly changed since the prior study, possibly representing chronic ischemic change. Additional considerations may include encephalomalacia from posttraumatic contusion. Additional etiologies not excluded. Correlation MRI may be helpful if clinically indicated. Probable chronic deformity of the left nasal bone.
--- NOTE | 2017-06-01 15:59 | C.PDOC ---
History Of Present Illness 37 y/o male presents to the ER for detox from heroin. He reports that he had two seizures today and earlier in the week.He reports that he takes the seizure medications Aptiom and Depakote 500 BID. He is suffering a laceration to his forehead for which he sought treatment at [place] [facility] 2 days ago.He had a normal head CT. He had a left brow laceration and his wound was closed with glue at [place] [facility]. Time Seen by Provider: 06/01/17 13:47 Chief Complaint (Nursing): Seizure History Per: Patient History/Exam Limitations: no limitations Number Of Seizures: Multiple Past Medical History Reviewed: Historical Data, Nursing Documentation, Vital Signs Vital Signs: Last Vital Signs Temp 97.8 F 06/01/17 19:43 Pulse 79 06/01/17 19:43 Resp 20 06/01/17 19:43 BP 110/71 06/01/17 19:43 Pulse Ox 95 06/01/17 20:25 - Medical History PMH: Anxiety, Depression, Pancreatitis, Seizures, Chronic Pain Denies: Diabetes, Hepatitis, HIV, HTN, Chronic Kidney Disease, Sexually Transmitted Disease Surgical History: No Surg Hx - [facility] Procedures DETOXIFICATION SERVICES FOR SUBSTANCE ABUSE TREATMENT (11/19/16) GROUP RAIL FILLER FOR SUBSTANCE ABUSE TREATMENT, PSYCHOEDUCATION (11/19/16) GROUP PSYCHOTHERAPY (03/22/16) INDIV PSYCHOTHERAPY FOR SUBSTANCE ABUSE TREATMENT, SUPPORT (11/19/16) INDIVID PSYCHOTHERAP NEC (12/23/14) INDIVIDUAL PSYCHOTHERAPY, SUPPORTIVE (03/22/16) MEDICATION MANAGEMENT (11/19/16) OTHER GROUP THERAPY (12/23/14) VACCINATION NEC (02/11/15) Family History: States: No Known Family Hx - Social History Hx Tobacco Use: Yes Hx Alcohol Use: No Hx Substance Use: Yes - Immunization History Hx Tetanus Toxoid Vaccination: No Hx Influenza Vaccination: Yes Hx Pneumococcal Vaccination: Yes Review Of Systems Except As Marked, All Systems Reviewed And Found Negative. Neurological: Positive for: Seizures (two seizures today, seizures earlier in the week) Physical Exam - Physical Exam Appears: Other (awake,alert, bizarre affect.) Skin: Normal Color Head: Laceration ( 4 cm vertical surgical dash-like laceration to the middle of forehead which goes into subcutanous tissue, no contussions) Eye(s): bilateral: Abnormal Pupil (pinpoint pupils), Other (healing lacerations) Nose: Normal Oral Mucosa: Moist Chest: Symmetrical Cardiovascular: Rhythm Regular Respiratory: Normal Breath Sounds, No Accessory Muscle Use Neurological/Psych: Oriented x3, Normal Speech, Normal Cognition ED Course And Treatment - Laboratory Results Result Diagrams: 06/01/17 14:10 06/01/17 14:10 Lab Interpretation: Abnormal (tox + opiates, alcohola and UA neg.) O2 Sat by Pulse Oximetry: 95 (RA) Pulse Ox Interpretation: Normal - CT Scan/US No standard instances Other Rad Studies (CT/US): Read By Radiologist, Radiology Report Reviewed CT/US Interpretation: IMPRESSION: Again identified in the anterior left frontal lobe is a focal area of low the attenuation best seen on series 2, image 20, not significantly changed since the prior study, possibly representing chronic ischemic change. Additional considerations may include encephalomalacia from posttraumatic contusion. Additional etiologies not excluded. Correlation MRI may be helpful if clinically indicated. Probable chronic deformity of the left nasal bone. Progress Note: 1600: facial wound repair. midline forehead wound cleaned and lido with epi pledgette applied with circumferencial bandage and JOEY bandage for gentle pressure and hemostasis. Wound edges easily approxmiated due to the intentional surgical-like nature of the 4 cm lac- steri strips applied and and skin adhesive over with excellent closure and results, well tolerated, no complications. Reevaluation Time: 18:44 Reassessment Condition: Improved - Physician Consult Information Outcome Of Conversation: 1840: after multiple d/w Crisi Evaluators- pt ok to 5E Medical Decision Making Medical Decision Making: Impression: Detox from Heroin abuse Plan: --Labs --Urinalysis --CT Head W/O Contrast Results: Head CT - Negative ? seizure and heroine abuse, pt does not appear post-ictal, more like heroine intoxicated. Psych: The precise linear midline forehead laceration seems deliberately inflicted and not accidental as there is no contusion trauma involved and the straight nature of the wound echoes other similar b/l forehead and eyebrow wounds which seem created with a sharp blade (like a surgical scalpel) rather than from a crushing injury of a seizure victim falling to ground and accidentally contusing face to the extent, velocity, and force to cause a deep laceration without accompanying contusion and typical irregularity of the wound and its edges. Consider underlying mental illness and other factors which might self-inflicted wounds. The ability to self-inflict these kinds of wounds repeatedly may be c/ w a cutting behavior or suggest the ability to more severe injuries, such as a suicide attempt. Pt on 1:1 observation which should be continued as appropriate. Neuro: pts compliance with seizure meds and no further seizure activity in the ER since arrival and no additional seizure suppressive meds given nor the suspicion of benzo or alcohol withdrawal which might lower seizure threshold, and no other wounds/chaudhry/contusions on his body which might support recent seizure activity, might argue more for pt having NOT suffered seizure today METAL BONDING HELPER For Seizure precaution please continue pt's outpatient seizure med regimen while inpatient. Neuro Consult PRN Laceration: cleaned and wound closed. No further antibiotics required for relatively clean wound. TDap up to date. Ster-strips and skin adhesive will naturally crumble and peel off in about 5 days. Watch for s/s of infection. Do not manipulate the bandages/closure. Disposition Doctor Will See Patient In The: Hospital Counseled Patient/Family Regarding: Studies Performed, Diagnosis - Disposition Disposition: HOSPITALIZED Disposition Time: 16:47 Condition: GOOD - Clinical Impression Clinical Impression: Facial laceration, Opiate addiction, Seizure disorder - Scribe Statement The provider has reviewed the documentation as recorded by the Grzegorzibe Melissa Klein Provider Attestation: All medical record entries made by the Scribe were at my direction and personally dictated by me. I have reviewed the chart and agree that the record accurately reflects my personal performance of the history, physical exam, medical decision making, and the department course for this patient. I have also personally directed, reviewed, and agree with the discharge instructions and disposition.
--- NOTE | 2017-06-01 20:29 | PCM.BM ---
<Lyn Méndez - Last Filed: 06/01/17 20:26> Treatment Plan Problems - Problems identified on initial assessmt Depression Date Initiated: 06/01/17 Time Initiated: : Assessment reference: NA Status: Active Substance Abuse Date Initiated: 06/01/17 Time Initiated: 20:27 Assessment reference: NA Status: Active Treatment assets and liabiliti Patient Assests: adapts well, cooperative, self-reliant, ADL independent, physically healthy, negotiates basic needs, cognitively intact Patient Liabilities: live alone, financial problems, substance abuse (Heroin Abuse, 4 bags daily), medical problems (Hx of seizure, states he has 2 seizure today. total of 3 seizure this week) - Milieu Protocol Maintain good personal hygiene: daily Encourage regular showers, daily Remind patient to perform daily oral care, every shift Assist patient to perform ADL's (Self), other Assist patient to perform ADL's Conduct patient checks and document Observation sheet: Q15 minutes (Safety) Maintain personal safety: every shift Educate patient to report safety concerns to staff, every shift Monitor environment for contraband/sharps Medication safety: Monitor for expected outcome, potential side effects: every shift, Assess barriers to learning: every shift, Assess readiness for medication education: every shift <Shannan Dao - Last Filed: 06/03/17 10:08> Family Contact Family involvement: Famliy/SO not involved - Goals for Treatment Patient goals for treatment: "I want to go home." Discharge/Continuing Care - Education Needs Education Needs: Patient Medication, Patient Coping Skills, Patient Community resources - Discharge Discharge Criteria: Tolerates medication w/o severe side effects, No longer exhibiting s/s of withdrawal Discharge to:: Home - Treatment Team Participation Discussed with Family/SO: No Was Patient/Family/SO present at Treatment Team Meeting: Yes <Janell Muse - Last Filed: 06/05/17 22:18> - Diagnosis (1) Depression Status: Chronic Interventions: 06/05/17 22:18 * Assess/adjust medications daily and /or as needed * See patient on an individual basis 7x/week to assess symptoms of depression * Monitor for side effects & effectiveness of medications * (2) Opioid abuse Status: Acute Interventions: 06/05/17 22:18 * Assess 7x/week regarding severity of withdrawal * Educate regarding risks, benefits, side effects and alternatives of medications * Use Motivational Interviewing for abstinence * Use CBT for relapse prevention * Medication management for withdrawal symptoms * Encourage medication assisted treatment *
[2017-06-02 05:53] VITALS: RESP 20
[2017-06-02] MEDS ORDERED: Divalproex 500 mg DR Tab PO SCH (10:15)
[2017-06-02] MEDS: Divalproex 500 mg DR Tab PO SCH ×2 (14:12→17:03)
--- NOTE | 2017-06-02 16:52 | PCM.PSYCH ---
Initial Psychiatric Evaluation - Initial Psychiatric Evaluation Type of Admission: Voluntary Legal Status: Capacity Chief Complaint (in patient's own words): "I'm depressed" History of Present Illness and Precipitating Events: Time spend 35 minutes Pt is a 37 years old male with the history of Sz d/o and Bipolar d/o was admitted to psych floor for depression with SI. He reported that he is feeling depressed, suicidal. Pt contracted hospital for safety. He stated that his SI had been improved after coming to unit and he wants to be d/c. He currently denied SI, had no intent or plan. Pt denied any past suicide attempt. He denied auditory hallucinations. Pt is using 10bags iv heroin daily. Pt c/o feeling sick and having withdrawal symptoms current. chills, cramps. no nausea, no diarrhea. last use yesterday. Pt has financial stressors and has been having conflicts at home with his mother. pt has had two episodes of seizures for which he was brought in to the hospital. He stated that he is compliant with his anti seizure meds. . Current Medications: Active Medications Generic Name Dose Route Start Last Admin Trade Name Freq PRN Reason Stop Dose Admin Clonidine HCl 0.1 mg 06/02/17 12:29 Catapres PO Q8 PRN COWS Score More or Equal to 5 Divalproex Sodium 500 mg 06/02/17 14:00 06/02/17 14:[address] PO 500 mg TID ROXANNE Administration Gabapentin 100 mg 06/02/17 14:00 06/02/17 14:13 Neurontin PO 100 mg TID ROXANNE Administration Hydroxyzine HCl 25 mg 06/02/17 10:11 Atarax PO Q6 PRN Anxiety Loperamide HCl 2 mg 06/02/17 12:33 Imodium PO Q8 PRN Diarrhea Methadone HCl 20 mg 06/02/17 12:30 06/02/17 12:42 Methadone PO 06/06/17 12:29 20 mg DAILY ROXANNE Administration Taper Ondansetron HCl 4 mg 06/02/17 12:33 Zofran Tab PO Q8 PRN Nausea/Vomiting Past Psychiatric History - Past Psychiatric History Previous Treatment History: Inpatient Prior Psychiatric Treatment: He had been admitted at [facility] for Bipolar and opioid tx History of Abuse: denied History of ETOH/Drug Use: Please see HPI He denied etoh or other illicit drugs Pertinent Medical Hx (Current Medical&Sleep Prob, Allergies): Allergies Allergy/AdvReac Type Severity Reaction Status Date / Time No Known Allergies Allergy Verified 05/10/17 09:36 Eslicarbazepine Acetate [Aptiom] 1,200 mg PO DAILY 11/19/16 Alprazolam [Xanax] 2 mg PO HS 05/30/17 Divalproex [Depakote DR(*BID*)] 1,000 mg PO BID 05/30/17 Review of Systems - Review of Systems All systems: reviewed and no additional remarkable complaints except (see HPI, including seizure d/o) Mental Status Examination - Personal Presentation Personal Presentation: Looks younger than stated age Additional comments: malnourished, had triangular face - Affect Affect: Constricted, Other (smiling inappropriately) - Motor Activity Motor Activity: Calm - Reliability in Providing Information Reliability in Providing Information: Fair - Speech Speech: Organized - Mood Mood: Depressed - Formal Thought Process Formal Thought Process: No Impairment - Hallucinations/Delusions Hallucinations: Other (denied) - Obsessions/Compulsions Obsessions: No Compulsions: No - Cognitive Functions Orientation: Person, Place, Situation, Time Sensorium: Alert Attention/Concentration: Attentive Abstract Thinking: [place] Judgement: Imparied, as evidence by: Poor judgement, Imparied, as evidence by: Lack of insight into illness Memory: Recent intact, as evidence by: Ability to recall events of the day - Risk Risk: Withdrawal, Other (denied) - Strength & Assets Inventory Strength & Assets Inventory: Family support, Cooperative - Limitations Limitations: Other (chrnoic substance abuse and seizure d/o) DSM 5 DX - DSM 5 DSM 5 Diagnosis: MDD, recurrent, without psychotic features Seizure d/o Opioid dependence, sever, with withdrawal symptoms. - Recommended/Plan of Treatment Treatment Recommendations and Plan of Treatment: Consulted neurologist Start Depakote for seizures and mood stabilization Start Methadone taper Patient educated about risks, benefits, side effects & alternatives of meds. Pt verbalized understanding & agreed with the above.~ Therapy in milieu. Attend groups and activities CO for abstinence and CBT for relapse prevention Support and psychoeducation Consider and encourage MAT Refer to after care time spend 32 minutes Projected ELOS: 5 days Prognosis: fair with compliance with meds Discharge Plan and Discharge Criteria: as per floor SW and stabilization on meds - Smoking Cessation Smoking Cessation Initiated: Yes
--- NOTE | 2017-06-03 03:54 | CON ---
DATE: 06/02/2017 LOCATION: Patient is in room #527, Psychiatric Unit. REASON FOR THE CONSULTATION: Seizures. CHIEF COMPLAINT: Patient was brought into [facility] with history of depression and history of drug abuse. Because he carries a history of seizures, I was called in to evaluate him for further management. HISTORY OF PRESENT ILLNESS: Mr. Ezequiel Lerner is a 37-year-old right-handed male, who carries a history of seizures in his childhood, being followed by his neurologist somewhere in the [place], been given Keppra, been discontinued. Lately, he has been on Depakote and opium. No history of recent seizure; however, he did have a seizure few days ago. He could not quantify the seizure onset and the nature of the seizures. PAST MEDICAL HISTORY: Anxiety, depression, pancreatitis, seizures, chronic pain and drug abuse. PERSONAL HISTORY: He has been using drugs, heroin and opioids. History of smoking. No clear history of alcohol abuse. REVIEW OF SYSTEMS: Twelve-point system being reviewed. From neuro, seizures. MEDICATIONS: Hydroxyzine, Catapres, Depakote, Imodium, methadone, Neurontin and Zofran. PHYSICAL EXAMINATION VITAL SIGNS: Blood pressure 109/66, mean arterial pressure of 80, respirations 16, temperature afebrile. NECK: Supple. No carotid bruit. HEART: Sounds are regular. CHEST: Fair air entry. EXTREMITIES: No edema in legs. NEUROLOGIC: Mental status examination: He is awake, alert and oriented to person, place and time. No sign of hallucination, no sign of suicidal ideation, no sign of depression. Cranial nerve examination: Visual field intact. Pupils reactive to light. Extraocular movement normal. No nystagmus. No facial sensory deficit. No facial asymmetry. Hearing is normal. Tongue is midline. Good gag. Motor examination: On outstretched hand with eyes closed, no drift noted. No asterixis. Deep tendon reflexes: Biceps, brachialis, triceps 1+; both knees are 1+; both ankles are absent; plantars are downgoing. Coordination: [id number] test is intact. Gait is normal. He could able to do tandem. LABORATORY DATA: WBC 3.2, hemoglobin 12.3, hematocrit 35.4 and platelets 155. Sodium 138, potassium 3.9, chloride 99, bicarbonate 36, GFR more than 60. Urine shows opiate positive, alcohol level less than 10. CONCLUSION: Mr. Ezequiel Lerner has been presenting with history of substance abuse and history of seizures. For seizure medication, he has been taking dual medications, which both were subtherapeutic dose. I would like to increase the Depakote dose to 500 mg three times a day to give him an optimum of keep one drug to control his seizures. At this point, no further workup is needed from neurological point of view. Patient can be followed by his own neurologist as outpatient. Severino Luciano MD
[2017-06-03 05:59] VITALS: BP 121/74; PULSE 67; TEMP 98.2; O2SAT 98
--- NOTE | 2017-06-03 09:59 | PCM.PYCHDC ---
Mental Status Examination - Mental Status Examination Orientation: Person, Place, Situation, Time Memory: Intact Mood: Neutral Affect: Constricted Speech: Soft Attention: WNL Concentration: WNL Association: WNL Fund of Knowledge: WNL Formal Thought Process: No Impairment Description of patient's judgement and insight: partially impaired Psychotic Thoughts and Behaviors: denies any AVH Suicidal Ideation: No Current Homicidal Ideation?: No Discharge Summary - Discharge Note Reason for Hospitalization: Pt is a 37 years old male with the history of Sz d/o and Bipolar d/o was admitted to psych floor for depression with SI. He reported that he is feeling depressed, suicidal. Pt contracted hospital for safety. He stated that his SI had been improved after coming to unit and he wants to be d/c. He currently denied SI, had no intent or plan. Pt denied any past suicide attempt. He denied auditory hallucinations. Pt is using 10bags iv heroin daily. Pt c/o feeling sick and having withdrawal symptoms current. chills, cramps. no nausea, no diarrhea. last use yesterday. Pt has financial stressors and has been having conflicts at home with his mother. pt has had two episodes of seizures for which he was brought in to the hospital. He stated that he is compliant with his anti seizure meds. . Consultations:: List each consultation separately and include: 1. Reason for request. 2. Findings. 3. Follow-up Summary of Hospital Course include:: 1. Description of specific treatment plan utilized for patients during their course of treatmen. 2. Summarize the time- course for resolution of acute symptoms and/or regressed behaviors. 3. Describe issues identified and worked on during hospitalization. 4. Describe medication utilized. 5. Describe medical problems identified and treated. 6. Reassessment of suicide risk Summary of Hospital Course: During the course of his stay, patient (pt) started progressively improving and he no longer remained irritable, depressed, and suicidal. His mood and anxiety symptoms were improved and he started attending groups and meetings and started socializing. Patient denied any feelings of hopelessness, helplessness, and worthlessness, denied any problem with the sleep or appetite, denied suicidal ideation or homicidal ideation. Pt denied any auditory or visual hallucinations. Some changes were made in his current medications and patient was discharged on following medications. He tolerated these medications very well and denied any side effects. He was discharged to the [facility]. - Final Diagnosis (DSM 5) Condition upon Discharge: GOOD DSM 5: MDD, recurrent, without psychotic features Opioid dependence, sever, with withdrawal symptoms. Disposition: HOME/ ROUTINE Follow-up Treatment Plan: Education: Pt was educated and counseled about the risks and benefits of taking and not taking medications. Pt was educated and counseled about the risks of drinking and abusing drugs. Pt was educated and counseled to go to the ER or call 911 if pt develop suicidal ideation or homicidal ideation, worsening of symptoms or severe side effects of the meds. Prescriptions/Medication Reconciliation: Divalproex [Depakote DR] 500 mg PO BID 14 Days tcp Gabapentin [Neurontin] 100 mg PO BID 14 Days cap - Smoking Cessation Smoking Cessation Medication prescribed: No - Antipsychotic Medications Pt discharged on 2 or more routine antipsychotic medications: No
[2017-06-03] MEDS: Divalproex 500 mg DR Tab PO SCH (10:08)
== END 2017-06-03 09:45 | disposition home or self-care (01) | DRG 430 ==
LOC: C.ER 13:20 → C.5E 19:01
PROC: GZ3ZZZZ Medication Management (ICD-10-PCS; principal; 2017-06-01)
PROC: HZ2ZZZZ Detoxification Services for Substance Abuse Treatment (ICD-10-PCS; 2017-06-01)
PROC: HZ59ZZZ Individual Psychotherapy for Substance Abuse Treatment, Supportive (ICD-10-PCS; 2017-06-01)
PROC: GZHZZZZ Group Psychotherapy (ICD-10-PCS; 2017-06-01)
PROC: GZ52ZZZ Individual Psychotherapy, Cognitive (ICD-10-PCS; 2017-06-01)
DX: F33.2 Major depressive disorder, recurrent severe without psychotic features (principal); R45.851 Suicidal ideations; F11.23 Opioid dependence with withdrawal; F31.9 Bipolar disorder, unspecified; F17.210 Nicotine dependence, cigarettes, uncomplicated; G40.909 Epilepsy, unspecified, not intractable, without status epilepticus; S01.81XD Laceration without foreign body of other part of head, subsequent encounter; X58.XXXD Exposure to other specified factors, subsequent encounter